=== PATIENT | male | born 1955 | race Caucasian/White ===

== ENCOUNTER 2022-09-09 05:37 | Emergency (ER) | payer MEDICARE, OTHER ==
[2022-09-09 06:36] LABS: Bacteria/HPF None Seen HPF (None Seen); Bilirubin Negative (Negative); Blood, Urine Negative (Negative); Clarity Clear (Clear); Glucose, Urine (Dipstick) Greater than 1000 mg/dL (Negative); Ketone, Urine Negative (Negative); Leukocyte Negative Leu/uL (Negative); Nitrite Negative (Negative); Protein, Urine (Dipstick) 30 mg/dL (Neg-Trace); RBC/HPF 0-3 HPF (0-3); Specific Gravity, Urine 1.031 (1.002-1.036); Squamous Epithelial None Seen HPF (0-3); Urobilinogen Normal mg/dL (Less than 2); WBC/HPF 0-3 HPF (0-3)
[2022-09-09 06:41] LABS: #Eosinphils 0.2 thou/uL (0.0-0.7); #Lymphocytes 1.4 thou/uL (1.20-3.40); #Monocytes 0.7 thou/uL (0.11-0.59); #Neutrophils 3.5 thou/uL (1.40-6.50); %Basophils 0.8 % (0.0-1.0); %Eosinophils 3.3 % (0.0-10.0); %Lymphocytes 23.6 % (21.0-51.0); %Monocytes 11.5 % (0.0-10.0); %Neutrophils 60.8 % (42.0-75.0); Hemoglobin 13.5 g/dL (14.0-18.0); Mean Corpuscular HGB CONC 32.8 g/dL (32.0-36.0); Mean Corpuscular Volume 85.5 fl (78.0-98.0); Mean Platelet Volume 7.5 fL (7.4-10.4); Platelet Count 168 10x3/uL (130-400); RBC Distribution Width 13.3 % (11.5-14.5); Red Blood Cell (RBC) Count 4.83 mill/uL (4.70-6.10); White Blood Cell (WBC) Count 5.8 10x3/uL (4.8-10.8)
[2022-09-09 06:59] LABS: ALT (SGPT) 32 U/L (8-55); AST (SGOT) 21 U/L (5-34); Albumin 4.4 g/dL (3.4-4.8); Alkaline Phosphatase 72 U/L (40-110); Anion Gap 12 mmol/L (10-20); BUN (Urea Nitrogen) 36 mg/dL (8.4-25.7); Bilirubin, Total 0.2 mg/dL (0.2-1.2); Calc. Creatinine Clearance 0 mL/min (70-130); Calcium 9.8 mg/dL (7.8-10.44); Carbon Dioxide 25 mmol/L (23-31); Chloride 103 mmol/L (98-107); Estimated GFR 38; Globulin 3.2 g/dL (2.4-3.5); Glucose 369 mg/dL (80-115); Lipase 53 U/L (8-78); Potassium 4.2 mmol/L (3.5-5.1); Protein, Total 7.6 g/dL (5.8-8.1); Sodium 136 mmol/L (136-145)
[2022-09-09] MEDS ORDERED: Cephalexin 250 MG CAP ONE (08:20)
[2022-09-09] MEDS ORDERED: Sulfameth/Trimethoprim DS 800-160mg TAB ONE (08:20)
== END 2022-09-09 09:15 | disposition home or self-care (01) ==
LOC: ERS 05:37
DX: L03.115 Cellulitis of right lower limb (principal); L03.116 Cellulitis of left lower limb; E11.65 Type 2 diabetes mellitus with hyperglycemia; E78.00 Pure hypercholesterolemia, unspecified; I10 Essential (primary) hypertension; Z79.82 Long term (current) use of aspirin
CPT/HCPCS: 36416; 80053; 81003; 81015; 83690; 84484; 85025; 93005; 94760; 96360

== ENCOUNTER 2022-09-15 00:31 | Inpatient (IN) | payer MEDICARE ==
[2022-09-15 01:32] LABS: #Eosinphils 0.2 thou/uL (0.0-0.7); #Lymphocytes 2.1 thou/uL (1.20-3.40); #Monocytes 0.7 thou/uL (0.11-0.59); #Neutrophils 2.5 thou/uL (1.40-6.50); %Basophils 0.8 % (0.0-1.0); %Eosinophils 3.7 % (0.0-10.0); %Lymphocytes 36.9 % (21.0-51.0); %Monocytes 12.8 % (0.0-10.0); %Neutrophils 45.7 % (42.0-75.0); Hemoglobin 14.1 g/dL (14.0-18.0); Mean Corpuscular Volume 85.7 fl (78.0-98.0); Mean Platelet Volume 7.1 fL (7.4-10.4); Platelet Count 201 10x3/uL (130-400); RBC Distribution Width 13.4 % (11.5-14.5); Red Blood Cell (RBC) Count 4.71 mill/uL (4.70-6.10); White Blood Cell (WBC) Count 5.6 10x3/uL (4.8-10.8)
[2022-09-15 01:54] LABS: ALT (SGPT) 32 U/L (8-55); AST (SGOT) 22 U/L (5-34); Albumin 4.4 g/dL (3.4-4.8); Alkaline Phosphatase 71 U/L (40-110); Anion Gap 16 mmol/L (10-20); BUN (Urea Nitrogen) 27 mg/dL (8.4-25.7); Bilirubin, Total 0.2 mg/dL (0.2-1.2); Calc. Creatinine Clearance 0 mL/min (70-130); Calcium 10.3 mg/dL (7.8-10.44); Carbon Dioxide 24 mmol/L (23-31); Chloride 104 mmol/L (98-107); Estimated GFR 29; Globulin 3.2 g/dL (2.4-3.5); Glucose 192 mg/dL (80-115); Potassium 4.6 mmol/L (3.5-5.1); Protein, Total 7.6 g/dL (5.8-8.1); Sodium 139 mmol/L (136-145)
[2022-09-15] MEDS ORDERED: Cefepime 2 GM VIAL ONE (02:15)
[2022-09-15] MEDS ORDERED: VANCOMYCIN 2 GRAM/500 ML BAG 2 GM in Premix Bag 1 BAG IVPB SCH (02:30)
[2022-09-15] MEDS ORDERED: Dextrose 5% in Water 1,000 ML IV PRN (03:38)
[2022-09-15] MEDS ORDERED: Dextrose 50% Abboject 50 ML SYRINGE SLOW IVP PRN (03:38)
[2022-09-15] MEDS ORDERED: HumaLOG 300 UNITS/3 ML VIAL SC PRN (03:40)
[2022-09-15] MEDS ORDERED: Acetaminophen 500 MG TAB PO PRN (03:45)
[2022-09-15 04:43] VITALS: BMI 31.9
[2022-09-15] MEDS: Lactated Ringer's 1,000 ML IV SCH ×3 (05:12→20:54)
[2022-09-15] MEDS ORDERED: Vancomycin Dose by Levels Sliding Scale (Wt 71-99) FS SCH (05:30)
[2022-09-15 08:52] LABS: Creatinine, Urine 84.76 mg/dL (63-166)
[2022-09-15] MEDS: Carvedilol 6.25 MG TAB PO SCH ×2 (09:33→16:03)
[2022-09-15] MEDS: Heparin 5,000 UNITS/ML VIAL SC SCH ×3 (09:34→20:43)
[2022-09-15] MEDS ORDERED: Cefepime 1 GM in Sodium Chloride 0.9% 100 ML IVPB SCH (14:00)
[2022-09-15] MEDS: Aspirin Chewable 81 MG TAB PO SCH (20:42)
[2022-09-15] MEDS: Clopidogrel Bisulfate 75 MG TAB PO SCH (20:43)
[2022-09-15] MEDS: Insulin Glargine 30 UNITS/0.3 ML VIAL SC SCH (20:44)
[2022-09-15] MEDS: Rosuvastatin 20 MG TAB PO SCH (20:45)
[2022-09-15] MEDS ORDERED: Losartan 25 MG TAB PO SCH (21:00)
[2022-09-16] MEDS: Lactated Ringer's 1,000 ML IV SCH (03:48)
[2022-09-16 06:02] LABS: #Eosinphils 0.2 thou/uL (0.0-0.7); #Lymphocytes 1.3 thou/uL (1.20-3.40); #Monocytes 0.5 thou/uL (0.11-0.59); #Neutrophils 3.5 thou/uL (1.40-6.50); %Basophils 0.6 % (0.0-1.0); %Eosinophils 3.1 % (0.0-10.0); %Lymphocytes 23.6 % (21.0-51.0); %Monocytes 8.7 % (0.0-10.0); %Neutrophils 64.1 % (42.0-75.0); Mean Corpuscular HGB CONC 34.4 g/dL (32.0-36.0); Mean Corpuscular Hemoglobin 29.3 pg (27.0-31.0); Mean Corpuscular Volume 85.1 fl (78.0-98.0); Mean Platelet Volume 6.8 fL (7.4-10.4); Platelet Count 179 10x3/uL (130-400); RBC Distribution Width 13.3 % (11.5-14.5); Red Blood Cell (RBC) Count 4.44 mill/uL (4.70-6.10); White Blood Cell (WBC) Count 5.5 10x3/uL (4.8-10.8)
[2022-09-16 06:30] LABS: Anion Gap 12 mmol/L (10-20); BUN (Urea Nitrogen) 14 mg/dL (8.4-25.7); Calc. Creatinine Clearance 79 mL/min (70-130); Calcium 9.4 mg/dL (7.8-10.44); Carbon Dioxide 22 mmol/L (23-31); Chloride 111 mmol/L (98-107); Estimated GFR 71; Glucose 86 mg/dL (80-115); Potassium 3.8 mmol/L (3.5-5.1); Sodium 141 mmol/L (136-145)
[2022-09-16] MEDS: Carvedilol 6.25 MG TAB PO SCH ×2 (08:49→16:16)
[2022-09-16] MEDS: Heparin 5,000 UNITS/ML VIAL SC SCH ×3 (08:49→20:24)
[2022-09-16] MEDS ORDERED: Losartan 25 MG TAB PO SCH ×2 (09:00→10:00)
[2022-09-16] MEDS: HumaLOG 300 UNITS/3 ML VIAL SC PRN ×2 (12:03→17:29)
[2022-09-16] MEDS ORDERED: Cilostazol 100 MG TAB PO SCH (12:15)
[2022-09-16] MEDS ORDERED: NIFEdipine XL 30 MG TAB PO SCH (17:00)
[2022-09-16] MEDS: Aspirin Chewable 81 MG TAB PO SCH (20:24)
[2022-09-16] MEDS: Cilostazol 100 MG TAB PO SCH (20:24)
[2022-09-16] MEDS: Rosuvastatin 20 MG TAB PO SCH (20:24)
[2022-09-16] MEDS: Clopidogrel Bisulfate 75 MG TAB PO SCH (20:25)
[2022-09-16] MEDS: Insulin Glargine 30 UNITS/0.3 ML VIAL SC SCH (20:25)
[2022-09-17 07:08] LABS: #Eosinphils 0.3 thou/uL (0.0-0.7); #Monocytes 0.5 thou/uL (0.11-0.59); #Neutrophils 1.8 thou/uL (1.40-6.50); %Basophils 0.9 % (0.0-1.0); %Eosinophils 5.5 % (0.0-10.0); %Lymphocytes 43.3 % (21.0-51.0); %Monocytes 11.2 % (0.0-10.0); Hemoglobin 13.4 g/dL (14.0-18.0); Mean Corpuscular HGB CONC 33.3 g/dL (32.0-36.0); Mean Platelet Volume 7.1 fL (7.4-10.4); Platelet Count 203 10x3/uL (130-400); RBC Distribution Width 13.2 % (11.5-14.5); Red Blood Cell (RBC) Count 4.63 mill/uL (4.70-6.10); White Blood Cell (WBC) Count 4.7 10x3/uL (4.8-10.8)
[2022-09-17 07:23] LABS: Anion Gap 12 mmol/L (10-20); BUN (Urea Nitrogen) 16 mg/dL (8.4-25.7); Calc. Creatinine Clearance 77 mL/min (70-130); Calcium 9.6 mg/dL (7.8-10.44); Carbon Dioxide 25 mmol/L (23-31); Chloride 107 mmol/L (98-107); Estimated GFR 68; Glucose 109 mg/dL (80-115); Potassium 3.6 mmol/L (3.5-5.1); Sodium 140 mmol/L (136-145)
[2022-09-17] MEDS: Cilostazol 100 MG TAB PO SCH (08:34)
[2022-09-17] MEDS: Heparin 5,000 UNITS/ML VIAL SC SCH (08:34)
[2022-09-17] MEDS: Carvedilol 6.25 MG TAB PO SCH (08:34)
[2022-09-17] MEDS ORDERED: NIFEdipine XL 30 MG TAB PO SCH (09:00)
[2022-09-17] MEDS ORDERED: Losartan 25 MG TAB PO SCH (09:00)
[2022-09-17 09:24] VITALS: TEMP 98
[2022-09-17 11:04] VITALS: BP 152/75
== END 2022-09-17 11:02 | disposition home or self-care (01) | DRG 300 ==
LOC: ERS 00:31 → SURG B 03:08 → OBSVTOIN 09-17
PROVIDERS: ADMIT Student in an Organized Health Care Education/Training Program; ATTEND Emergency Medicine
DX: E11.51 Type 2 diabetes mellitus with diabetic peripheral angiopathy without gangrene (principal); N17.9 Acute kidney failure, unspecified; E11.621 Type 2 diabetes mellitus with foot ulcer; Z66 Do not resuscitate; I16.0 Hypertensive urgency; E78.5 Hyperlipidemia, unspecified; G47.33 Obstructive sleep apnea (adult) (pediatric); I87.2 Venous insufficiency (chronic) (peripheral); I77.1 Stricture of artery; N18.2 Chronic kidney disease, stage 2 (mild); I12.9 Hypertensive chronic kidney disease with stage 1 through stage 4 chronic kidney disease, or unspecified chronic kidney disease; D63.1 Anemia in chronic kidney disease; L97.519 Non-pressure chronic ulcer of other part of right foot with unspecified severity; Z79.899 Other long term (current) drug therapy; Z79.82 Long term (current) use of aspirin; Z79.02 Long term (current) use of antithrombotics/antiplatelets; Z98.49 Cataract extraction status, unspecified eye; Z89.421 Acquired absence of other right toe(s); Z95.828 Presence of other vascular implants and grafts
CPT/HCPCS: 36415; 36416; 80048; 80053; 82570; 83605; 84300; 85025; 85652; 86140; 96365; 96367; 97139; J0692; J1644; J1815; J3370; J7120

== ENCOUNTER 2023-02-27 00:54 | Emergency (ER) | payer MEDICARE, OTHER ==
[2023-02-27 01:38] LABS: #Eosinphils 0.4 thou/uL (0.0-0.7); #Monocytes 0.7 thou/uL (0.11-0.59); #Neutrophils 3.2 thou/uL (1.40-6.50); %Basophils 0.7 % (0.0-1.0); %Eosinophils 6.1 % (0.0-10.0); %Lymphocytes 28.9 % (21.0-51.0); %Monocytes 11.1 % (0.0-10.0); %Neutrophils 52.9 % (42.0-75.0); Hematocrit 43.3 % (42.0-52.0); Hemoglobin 14.3 g/dL (14.0-18.0); Mean Corpuscular Volume 84.7 fl (78.0-98.0); Platelet Count 183 10x3/uL (130-400); RBC Distribution Width 13.3 % (11.5-14.5); Red Blood Cell (RBC) Count 5.11 mill/uL (4.70-6.10)
[2023-02-27 02:02] LABS: ALT (SGPT) 78 U/L (8-55); AST (SGOT) 43 U/L (5-34); Albumin 4.5 g/dL (3.4-4.8); Alkaline Phosphatase 61 U/L (40-110); Anion Gap 16 mmol/L (10-20); BUN (Urea Nitrogen) 29 mg/dL (8.4-25.7); Bilirubin, Total 0.3 mg/dL (0.2-1.2); Calc. Creatinine Clearance 0 mL/min (70-130); Calcium 9.7 mg/dL (7.8-10.44); Carbon Dioxide 25 mmol/L (23-31); Chloride 103 mmol/L (98-107); Estimated GFR 56; Globulin 3.1 g/dL (2.4-3.5); Glucose 156 mg/dL (80-115); Magnesium 2.5 mg/dL (1.6-2.6); Potassium 4.2 mmol/L (3.5-5.1); Protein, Total 7.6 g/dL (5.8-8.1); Sodium 140 mmol/L (136-145)
[2023-02-27] MEDS ORDERED: HYDROcodone/Acetaminophen 5/325 mg Tablet ONE (03:05)
[2023-02-27] MEDS ORDERED: Ketorolac Tromethamine 30 MG/ML VIAL ONE (03:05)
== END 2023-02-27 03:42 | disposition home or self-care (01) ==
LOC: ERS 00:54
DX: H92.02 Otalgia, left ear (principal); E78.00 Pure hypercholesterolemia, unspecified; I10 Essential (primary) hypertension; E11.51 Type 2 diabetes mellitus with diabetic peripheral angiopathy without gangrene
CPT/HCPCS: 36415; 71045; 80053; 83735; 83880; 84484; 85025; 93005; 96372; J1885

== ENCOUNTER 2025-02-10 23:33 | Inpatient (IN) | payer OTHER ==
[2025-02-11 02:08] LABS: #Basophils 0.04 10x3/uL (0.0-0.2); #Eosinophils 0.14 10x3/uL (0.0-0.7); #Monocytes 1.01 10x3/uL (0.11-0.59); #Neutrophils 4.80 10x3/uL (1.40-6.50); %Basophils 0.5 % (0.0-1.0); %Eosinophils 1.8 % (0.0-10.0); %Lymphocytes 23.4 % (21.0-51.0); %Monocytes 12.7 % (0.0-10.0); %Neutrophils 60.5 % (42.0-75.0); Hematocrit 35.5 % (42.0-52.0); Hemoglobin 11.2 g/dL (14.0-18.0); Mean Corpuscular Hemoglobin 28.1 pg (27.0-31.0); Mean Corpuscular Volume 89.0 fL (78.0-98.0); Platelet Count 253 10x3/uL (130-400); Red Blood Cell (RBC) Count 3.99 mill/uL (4.70-6.10); White Blood Cell (WBC) Count 7.94 10x3/uL (4.8-10.8)
[2025-02-11 02:24] LABS: ALT (SGPT) 14 U/L (Less than 45); AST (SGOT) 15 U/L (11-34); Albumin 3.2 g/dL (3.1-4.5); Alkaline Phosphatase 66 U/L (40-110); Anion Gap 16 mmol/L (10-20); BUN (Urea Nitrogen) 33 mg/dL (8.4-25.7); Bilirubin, Total 0.2 mg/dL (0.3-1.2); Calc. Creatinine Clearance 0 mL/min (70-130); Calcium 9.6 mg/dL (7.8-10.44); Carbon Dioxide 20 mmol/L (23-31); Chloride 106 mmol/L (98-107); Globulin 4.0 g/dL (2.4-3.5); Glucose 205 mg/dL (80-115); Potassium 3.7 mmol/L (3.5-5.1); Sodium 138 mmol/L (136-145)
[2025-02-11] MEDS ORDERED: VANCOMYCIN 2 GRAM/400 ML BAG ONE (04:09)
[2025-02-11] MEDS ORDERED: Pantoprazole 40 MG DR.TAB PO PRN (05:12)
[2025-02-11] MEDS ORDERED: Dextrose 50% Abboject 50 ML SYRINGE SLOW IVP PRN (05:14)
[2025-02-11] MEDS ORDERED: Glucagon 1 MG/ML KIT IM PRN (05:14)
[2025-02-11 06:05] VITALS: BMI 29.2
[2025-02-11] MEDS: metFORMIN 500 MG TAB PO SCH (10:55)
[2025-02-11] MEDS: Carvedilol 6.25 MG TAB PO SCH (10:55)
[2025-02-11] MEDS: Losartan 25 MG TAB PO SCH (10:56)
[2025-02-11] MEDS: Insulin Glargine 30 UNITS/0.3 ML VIAL SC SCH (20:30)
[2025-02-11] MEDS: Vancomycin 1.5 GM / NS 500ML VIAL-2-BAG IVPB SCH (20:31)
[2025-02-11] MEDS: Rosuvastatin 20 MG TAB PO SCH (20:31)
[2025-02-11] MEDS ORDERED: Rosuvastatin 10 MG TAB PO SCH (21:00)
[2025-02-12 06:38] LABS: #Basophils 0.03 10x3/uL (0.0-0.2); #Eosinophils 0.16 10x3/uL (0.0-0.7); #Monocytes 0.73 10x3/uL (0.11-0.59); #Neutrophils 3.58 10x3/uL (1.40-6.50); %Basophils 0.5 % (0.0-1.0); %Eosinophils 2.7 % (0.0-10.0); %Lymphocytes 23.7 % (21.0-51.0); %Monocytes 12.2 % (0.0-10.0); %Neutrophils 59.9 % (42.0-75.0); Hematocrit 39.8 % (42.0-52.0); Hemoglobin 12.3 g/dL (14.0-18.0); Mean Corpuscular Hemoglobin 27.8 pg (27.0-31.0); Mean Corpuscular Volume 89.8 fL (78.0-98.0); Platelet Count 250 10x3/uL (130-400); Red Blood Cell (RBC) Count 4.43 mill/uL (4.70-6.10); White Blood Cell (WBC) Count 5.98 10x3/uL (4.8-10.8)
[2025-02-12 06:51] LABS: Vancomycin, Random 22.2 ug/mL (See Comment)
[2025-02-12 06:55] LABS: ALT (SGPT) 19 U/L (Less than 45); AST (SGOT) 28 U/L (11-34); Albumin 3.3 g/dL (3.1-4.5); Alkaline Phosphatase 65 U/L (40-110); Anion Gap 14 mmol/L (10-20); BUN (Urea Nitrogen) 24 mg/dL (8.4-25.7); Bilirubin, Total 0.3 mg/dL (0.3-1.2); Calc. Creatinine Clearance 67 mL/min (70-130); Calcium 10.2 mg/dL (7.8-10.44); Carbon Dioxide 25 mmol/L (23-31); Chloride 106 mmol/L (98-107); Globulin 4.1 g/dL (2.4-3.5); Glucose 124 mg/dL (80-115); Potassium 4.4 mmol/L (3.5-5.1); Sodium 141 mmol/L (136-145)
[2025-02-12] MEDS: Enoxaparin 40 MG (0.4 mL) SYRINGE SC SCH (08:12)
[2025-02-12] MEDS: Vancomycin HCl 1.25 GM in Sodium Chloride 0.9% 250 ML 250 ML IVPB SCH (21:56)
[2025-02-13 04:50] LABS: #Basophils 0.03 10x3/uL (0.0-0.2); #Eosinophils 0.13 10x3/uL (0.0-0.7); #Monocytes 0.67 10x3/uL (0.11-0.59); #Neutrophils 3.90 10x3/uL (1.40-6.50); %Basophils 0.5 % (0.0-1.0); %Eosinophils 2.1 % (0.0-10.0); %Lymphocytes 23.2 % (21.0-51.0); %Monocytes 10.7 % (0.0-10.0); %Neutrophils 62.5 % (42.0-75.0); Hematocrit 35.5 % (42.0-52.0); Hemoglobin 11.2 g/dL (14.0-18.0); Mean Corpuscular Hemoglobin 27.9 pg (27.0-31.0); Mean Corpuscular Volume 88.5 fL (78.0-98.0); Platelet Count 252 10x3/uL (130-400); Red Blood Cell (RBC) Count 4.01 mill/uL (4.70-6.10); White Blood Cell (WBC) Count 6.24 10x3/uL (4.8-10.8)
[2025-02-13 05:15] LABS: ALT (SGPT) 27 U/L (Less than 45); AST (SGOT) 24 U/L (11-34); Albumin 2.9 g/dL (3.1-4.5); Alkaline Phosphatase 58 U/L (40-110); Anion Gap 13 mmol/L (10-20); BUN (Urea Nitrogen) 25 mg/dL (8.4-25.7); Bilirubin, Total 0.3 mg/dL (0.3-1.2); Calc. Creatinine Clearance 61 mL/min (70-130); Calcium 9.4 mg/dL (7.8-10.44); Carbon Dioxide 23 mmol/L (23-31); Chloride 106 mmol/L (98-107); Globulin 3.8 g/dL (2.4-3.5); Glucose 124 mg/dL (80-115); Potassium 3.6 mmol/L (3.5-5.1); Sodium 138 mmol/L (136-145)
[2025-02-14] MEDS: Acetaminophen 325 MG TAB PO PRN (04:24)
[2025-02-14 05:15] LABS: #Basophils 0.04 10x3/uL (0.0-0.2); #Eosinophils 0.18 10x3/uL (0.0-0.7); #Monocytes 0.91 10x3/uL (0.11-0.59); #Neutrophils 4.25 10x3/uL (1.40-6.50); %Basophils 0.6 % (0.0-1.0); %Eosinophils 2.6 % (0.0-10.0); %Lymphocytes 22.6 % (21.0-51.0); %Monocytes 12.9 % (0.0-10.0); %Neutrophils 60.4 % (42.0-75.0); Hematocrit 37.3 % (42.0-52.0); Hemoglobin 11.6 g/dL (14.0-18.0); Mean Corpuscular Hemoglobin 27.6 pg (27.0-31.0); Mean Corpuscular Volume 88.6 fL (78.0-98.0); Platelet Count 254 10x3/uL (130-400); Red Blood Cell (RBC) Count 4.21 mill/uL (4.70-6.10); White Blood Cell (WBC) Count 7.03 10x3/uL (4.8-10.8)
[2025-02-14 05:36] LABS: Vancomycin, Random 26.5 ug/mL (See Comment)
[2025-02-14 05:44] LABS: Anion Gap 17 mmol/L (10-20); Chloride 106 mmol/L (98-107); Potassium 4.8 mmol/L (3.5-5.1); Sodium 143 mmol/L (136-145)
[2025-02-14 06:23] LABS: ALT (SGPT) 28 U/L (Less than 45); AST (SGOT) 18 U/L (11-34); Albumin 3.2 g/dL (3.1-4.5); Alkaline Phosphatase 63 U/L (40-110); BUN (Urea Nitrogen) 29 mg/dL (8.4-25.7); Bilirubin, Total 0.3 mg/dL (0.3-1.2); Calc. Creatinine Clearance 51 mL/min (70-130); Calcium 9.8 mg/dL (7.8-10.44); Carbon Dioxide 25 mmol/L (23-31); Globulin 3.3 g/dL (2.4-3.5); Glucose 127 mg/dL (80-115)
[2025-02-14] MEDS ORDERED: fentaNYL PF 100 MCG/2 ML SYRINGE ONE (11:11)
[2025-02-14] MEDS ORDERED: Ondansetron PF 4 MG/2 ML Vial ONE (11:12)
[2025-02-14] MEDS ORDERED: PROPOFOL 20 ML ONE (11:12)
[2025-02-14] MEDS ORDERED: Lidocaine 1% PF 5 ML VIAL ONE (11:12)
[2025-02-14] MEDS ORDERED: PHENYLEPHRINE-NS 100 MCG/ML 10 ML SYRINGE ONE (11:58)
[2025-02-14] MEDS: HYDROcodone/Acetaminophen 7.5/325 mg Tablet PO SCH (18:19)
[2025-02-14] MEDS: Vancomycin 1 GM in Premix 1 BAG IVPB SCH (22:03)
[2025-02-14] MEDS: HYDROcodone/Acetaminophen 7.5/325 mg Tablet PO PRN (22:04)
[2025-02-15 06:11] LABS: #Basophils Less than 0.03 10x3/uL (0.0-0.2); #Eosinophils 0.16 10x3/uL (0.0-0.7); #Monocytes 0.72 10x3/uL (0.11-0.59); #Neutrophils 3.84 10x3/uL (1.40-6.50); %Basophils 0.3 % (0.0-1.0); %Eosinophils 2.6 % (0.0-10.0); %Lymphocytes 21.3 % (21.0-51.0); %Monocytes 11.9 % (0.0-10.0); %Neutrophils 63.6 % (42.0-75.0); Hematocrit 36.6 % (42.0-52.0); Hemoglobin 11.4 g/dL (14.0-18.0); Mean Corpuscular Hemoglobin 27.8 pg (27.0-31.0); Mean Corpuscular Volume 89.3 fL (78.0-98.0); Platelet Count 239 10x3/uL (130-400); Red Blood Cell (RBC) Count 4.10 mill/uL (4.70-6.10); White Blood Cell (WBC) Count 6.05 10x3/uL (4.8-10.8)
[2025-02-15 06:26] LABS: ALT (SGPT) 24 U/L (Less than 45); AST (SGOT) 23 U/L (11-34); Albumin 3.0 g/dL (3.1-4.5); Alkaline Phosphatase 57 U/L (40-110); Anion Gap 13 mmol/L (10-20); BUN (Urea Nitrogen) 17 mg/dL (8.4-25.7); Bilirubin, Total 0.4 mg/dL (0.3-1.2); Calc. Creatinine Clearance 65 mL/min (70-130); Calcium 9.5 mg/dL (7.8-10.44); Carbon Dioxide 27 mmol/L (23-31); Chloride 107 mmol/L (98-107); Globulin 3.8 g/dL (2.4-3.5); Glucose 73 mg/dL (80-115); Potassium 3.6 mmol/L (3.5-5.1); Sodium 143 mmol/L (136-145)
[2025-02-15 06:33] LABS: Vancomycin, Random 20.8 ug/mL (See Comment)
[2025-02-15] MEDS: Acetaminophen 325 MG TAB PO SCH (11:46)
[2025-02-15] MEDS: Vancomycin HCl 1.25 GM in Sodium Chloride 0.9% 250 ML 250 ML IVPB SCH (19:33)
[2025-02-16 05:28] LABS: #Basophils 0.05 10x3/uL (0.0-0.2); #Eosinophils 0.17 10x3/uL (0.0-0.7); #Monocytes 0.83 10x3/uL (0.11-0.59); #Neutrophils 4.59 10x3/uL (1.40-6.50); %Basophils 0.7 % (0.0-1.0); %Eosinophils 2.3 % (0.0-10.0); %Lymphocytes 23.2 % (21.0-51.0); %Monocytes 11.2 % (0.0-10.0); %Neutrophils 62.2 % (42.0-75.0); Hematocrit 35.8 % (42.0-52.0); Hemoglobin 11.2 g/dL (14.0-18.0); Mean Corpuscular Hemoglobin 28.0 pg (27.0-31.0); Mean Corpuscular Volume 89.5 fL (78.0-98.0); Platelet Count 242 10x3/uL (130-400); Red Blood Cell (RBC) Count 4.00 mill/uL (4.70-6.10); White Blood Cell (WBC) Count 7.38 10x3/uL (4.8-10.8)
[2025-02-16 05:58] LABS: ALT (SGPT) 20 U/L (Less than 45); AST (SGOT) 19 U/L (11-34); Albumin 3.1 g/dL (3.1-4.5); Alkaline Phosphatase 57 U/L (40-110); Anion Gap 12 mmol/L (10-20); BUN (Urea Nitrogen) 16 mg/dL (8.4-25.7); Bilirubin, Total 0.3 mg/dL (0.3-1.2); Calc. Creatinine Clearance 59 mL/min (70-130); Calcium 9.3 mg/dL (7.8-10.44); Carbon Dioxide 27 mmol/L (23-31); Chloride 107 mmol/L (98-107); Globulin 3.7 g/dL (2.4-3.5); Glucose 64 mg/dL (80-115); Potassium 3.8 mmol/L (3.5-5.1); Sodium 142 mmol/L (136-145)
[2025-02-16 14:10] VITALS: BMI 29.2
[2025-02-16] MEDS: HYDROcodone/Acetaminophen 7.5/325 mg Tablet PO PRN (16:01)
[2025-02-16] MEDS: Acetaminophen 325 MG TAB PO SCH (21:18)
[2025-02-16] MEDS: Aspirin Chewable 81 MG TAB PO SCH (21:19)
[2025-02-17 05:37] LABS: #Basophils 0.04 10x3/uL (0.0-0.2); #Eosinophils 0.20 10x3/uL (0.0-0.7); #Monocytes 0.86 10x3/uL (0.11-0.59); #Neutrophils 2.75 10x3/uL (1.40-6.50); %Basophils 0.7 % (0.0-1.0); %Eosinophils 3.5 % (0.0-10.0); %Lymphocytes 32.2 % (21.0-51.0); %Monocytes 15.1 % (0.0-10.0); %Neutrophils 48.1 % (42.0-75.0); Hematocrit 33.3 % (42.0-52.0); Hemoglobin 10.8 g/dL (14.0-18.0); Mean Corpuscular Hemoglobin 28.6 pg (27.0-31.0); Mean Corpuscular Volume 88.1 fL (78.0-98.0); Platelet Count 222 10x3/uL (130-400); Red Blood Cell (RBC) Count 3.78 mill/uL (4.70-6.10); White Blood Cell (WBC) Count 5.71 10x3/uL (4.8-10.8)
[2025-02-17 05:57] LABS: ALT (SGPT) 18 U/L (Less than 45); AST (SGOT) 17 U/L (11-34); Albumin 3.0 g/dL (3.1-4.5); Alkaline Phosphatase 50 U/L (40-110); Anion Gap 14 mmol/L (10-20); BUN (Urea Nitrogen) 19 mg/dL (8.4-25.7); Bilirubin, Total 0.3 mg/dL (0.3-1.2); Calc. Creatinine Clearance 60 mL/min (70-130); Calcium 9.4 mg/dL (7.8-10.44); Carbon Dioxide 24 mmol/L (23-31); Chloride 109 mmol/L (98-107); Globulin 3.4 g/dL (2.4-3.5); Glucose 61 mg/dL (80-115); Potassium 3.9 mmol/L (3.5-5.1); Sodium 143 mmol/L (136-145)
[2025-02-17 08:59] VITALS: BP 174/83; TEMP 97.7
== END 2025-02-17 11:00 | disposition home or self-care (01) | DRG 617 ==
LOC: ERS 23:33 → SURG B 02-11 04:24
PROVIDERS: ADMIT Family Medicine; ATTEND Family Medicine
PROC: 3E03329 Introduction of Other Anti-infective into Peripheral Vein, Percutaneous Approach (ICD-10-PCS; 2025-02-11)
PROC: 0Y6Q0Z1 Detachment at Left 1st Toe, High, Open Approach (ICD-10-PCS; principal; 2025-02-14)
PROC: 0Y6Q0Z3 Detachment at Left 1st Toe, Low, Open Approach (ICD-10-PCS; 2025-02-14)
DX: E13.69 Other specified diabetes mellitus with other specified complication (principal); E11.52 Type 2 diabetes mellitus with diabetic peripheral angiopathy with gangrene; M86.8X8 Other osteomyelitis, other site; I96 Gangrene, not elsewhere classified; M86.8X7 Other osteomyelitis, ankle and foot; N17.9 Acute kidney failure, unspecified; I25.10 Atherosclerotic heart disease of native coronary artery without angina pectoris; K21.9 Gastro-esophageal reflux disease without esophagitis; N18.2 Chronic kidney disease, stage 2 (mild); R19.7 Diarrhea, unspecified; E78.00 Pure hypercholesterolemia, unspecified; Z66 Do not resuscitate; E11.22 Type 2 diabetes mellitus with diabetic chronic kidney disease; I12.9 Hypertensive chronic kidney disease with stage 1 through stage 4 chronic kidney disease, or unspecified chronic kidney disease; G47.33 Obstructive sleep apnea (adult) (pediatric); D63.1 Anemia in chronic kidney disease; Z98.890 Other specified postprocedural states; Z79.899 Other long term (current) drug therapy; Z95.820 Peripheral vascular angioplasty status with implants and grafts; Z79.01 Long term (current) use of anticoagulants; Z79.02 Long term (current) use of antithrombotics/antiplatelets; Z79.4 Long term (current) use of insulin; Z89.411 Acquired absence of right great toe; Z95.5 Presence of coronary angioplasty implant and graft
CPT/HCPCS: 36415; 36416; 80053; 80202; 83605; 84145; 85025; 86141; 87324; 87449; 96365; 96375; 97139; J0665; J0692; J1650; J1815; J2543; J2704; J3373; J3375; J7030; J7050; J7120